=== PATIENT | female | born 1995 | race African-American/Black ===

== ENCOUNTER 2021-06-12 01:09 | Emergency (ER) | payer MEDICAID ==
[~2021-06-12] VITALS: Ht 175.3 cm; Wt 63.5 kg
--- NOTE | 2021-06-12 01:18 | NUR ---
Patient walked into ER c/o possible STD. Patient states her partner notified her that he tested + for and STD. Patient is A/O x4, able to ambulate on steady gait, no dizziness, no n/v, no distress noted.
--- NOTE | 2021-06-12 01:20 | NUR ---
Dr Catalan in room for DAJUAN
--- NOTE | 2021-06-12 01:20 | NUR ---
Female professor of violin accompanied female patient during Dr Alayna GRAFF
[2021-06-12 02:09] LABS: *BILIRUBIN,URIN NEGATIVE (NEGATIVE); *BLOOD, URINE NEGATIVE (NEGATIVE); *CLARITY,URINE CLOUDY (CLEAR); *COLOR,URINE YELLOW (YELLOW); *KETONES,URINE NEGATIVE (NEGATIVE); *UROBILINOGEN,URINE 0.2 E.U./dl (NORMAL); LEUKOCYTE ESTERASE ,URINE NEGATIVE (NEGATIVE); NITRITE, URINE POSITIVE (NEGATIVE); PH,URINE 5.5 (5.0-8.0); UGLUCOSE NEGATIVE (NEGATIVE)
[2021-06-12 02:14] LABS: *URINE HCG, QUAL NEGATIVE (NEGATIVE); BACTERIA,URINE MANY /HPF (NONE SEEN); RBC,URINE 0-3 /HPF (0-3)
[2021-06-12 02:15] LABS: SQUAMOUS EPITHELIAL CELL,UR FEW /HPF (NONE SEEN)
[2021-06-12] MEDS ORDERED: DOXYCYCLINE HYCLATE 100 MG TABLET ONE (02:21)
[2021-06-12] MEDS ORDERED: CEFTRIAXONE 500 MG VIAL ONE (02:22)
[2021-06-12] MEDS ORDERED: LIDOCAINE HCL 1% 20 ML VIAL ONE (02:22)
[2021-06-12] MEDS ORDERED: CEFTRIAXONE 500 MG VIAL IM ONE (02:30)
[2021-06-12] MEDS ORDERED: DOXYCYCLINE HYCLATE 100 MG TABLET PO ONE (02:30)
[2021-06-12] MEDS ORDERED: DOXY100C5 PO (02:33)
[2021-06-12 02:40] VITALS: BP 127/68
--- NOTE | 2021-06-12 02:41 | NUR ---
Patient discharged to home in stable condition. Written and verbal after care instructions given. Patient verbalizes understanding of instructions. Stressed follow up or return to ER for worsening s/s. Patient is A/Ox4, able to ambulate steady gait, no distress noted, no CP, no SOB.
== END 2021-06-12 02:42 | disposition home or self-care (01) ==
LOC: ER 01:23
DX: Z20.2 Contact with and (suspected) exposure to infections with a predominantly sexual mode of transmission (principal); N39.0 Urinary tract infection, site not specified; F17.210 Nicotine dependence, cigarettes, uncomplicated; Z88.0 Allergy status to penicillin
CPT/HCPCS: 81001; 84703; 87086; 96372; 99283; J0696; J3490; 87077; A4663